=== PATIENT | male | born 1960 | race Caucasian/White ===

== ENCOUNTER 2020-12-22 14:15 | Emergency (ER) | payer OTHER ==
[2020-12-22 14:42] LABS: HEMOGLOBIN 14.7 gm/dl (14.0-17.5); RED BLOOD COUNT 6.07 M/UL (4.20-5.50); WHITE BLOOD COUNT 7.4 K/UL (4.5-11.0)
[2020-12-22 15:15] LABS: BUN/CREATININE RATIO 19 (0-10)
[2020-12-22] MEDS ORDERED: IBUPROFEN600 MG PO (16:47)
== END 2020-12-22 18:59 | disposition home or self-care (01) ==
LOC: ER1 14:15
PROVIDERS: Internal Medicine
DX: R07.9 Chest pain, unspecified (principal); R10.9 Unspecified abdominal pain; E11.65 Type 2 diabetes mellitus with hyperglycemia; I10 Essential (primary) hypertension; V49.40XA Driver injured in collision with unspecified motor vehicles in traffic accident, initial encounter; Y92.410 Unspecified street and highway as the place of occurrence of the external cause
CPT/HCPCS: 71260; 80053; 82962; 85025; 93005; 96374; 99284; J7120; Q9967